=== PATIENT | female | born 1955 | race American Indian/Alaskan Native ===

== ENCOUNTER 2017-04-03 18:28 | Inpatient (IN) | payer OTHER ==
[2017-04-03] MEDS ORDERED: DUONEB *Not for PRN Use IH ONE (20:28)
--- NOTE | 2017-04-03 20:30 | Emergency Department Report ---
HPI - General Chief Complaint: Dyspnea/Respdistress Time Seen by Provider: 04/03/17 20:27 - HPI HPI: This is a 61-year-old -[place] female presents to the emergency department by EMS from a [facility] with complaint of shortness of breath, productive cough, increased fatigue. The patient says that she was diagnosed with influenza 5 days ago at the same urgent care. She went back there today because of the symptoms stated above. She says that she had a chest x-ray and some other blood work done there and was diagnosed with pneumonia. She was then sent here for further evaluation and treatment. The patient has a past medical history of hypertension. She is a tobacco smoker but says she has not had any cigarette in about 2 weeks. She denies any history of COPD and is not oxygen dependent. However the patient presents with some hypoxia with a pulse ox of 90 while on 2 L nasal cannula. She denies any history of AK, CVA, PE/DVT. No recent travel or sick contacts at home. She says that she has a primary care physician but has not seen them in quite some time. ED Review of Systems ROS: Stated complaint: MAT Other details as noted in HPI Comment: All other systems reviewed and negative Constitutional: other (fatigue). denies: chills, fever Eyes: denies: eye pain, eye discharge, vision change ENT: denies: ear pain, dental pain Respiratory: cough, shortness of breath, SOB with exertion Cardiovascular: denies: chest pain, edema Gastrointestinal: denies: abdominal pain, nausea, diarrhea Genitourinary: denies: urgency, dysuria, discharge Musculoskeletal: denies: back pain, joint swelling, arthralgia Skin: denies: rash, lesions Neurological: denies: headache, weakness, paresthesias Physical Exam - Physical Exam Vital Signs: Vital Signs 04/03/17 19:57 Temperature 99.2 F Pulse Rate 90 Respiratory 20 Rate Blood Pressure 139/73 O2 Sat by Pulse 87 Oximetry Physical Exam: GENERAL: The patient is well-developed well-nourished. HENT: Normocephalic. Atraumatic. Patient has moist mucous membranes. EYES: Extraocular motions are intact. Pupils equal reactive to light bilaterally. NECK: Supple. Trachea is midline. CHEST/LUNGS: Clear to auscultation. Mild tachypnea but no accessory muscle use. Occasional productive cough heard during examination. There is no respiratory distress noted. HEART/CARDIOVASCULAR: Regular. There is no tachycardia. There is no murmur. ABDOMEN: Abdomen is soft, nontender. Patient has normal bowel sounds. There is no abdominal distention. SKIN: Skin is warm and dry. NEURO: The patient is awake, alert, and oriented. The patient is cooperative. The patient has no focal neurologic deficits. The patient has normal speech. MUSCULOSKELETAL: There is no tenderness or deformity. There is no limitation range of motion. There is no evidence of acute injury. ED Course Vital Signs 04/03/17 19:57 Temperature 99.2 F Pulse Rate 90 Respiratory 20 Rate Blood Pressure 139/73 O2 Sat by Pulse 87 Oximetry - ABG Interpretation Ph: 7.558 PCO2: 28 PO2: 76 Bicarbonate: 25 Interpretation: respiratory alkalosis, other (hypoxia) ED Medical Decision Making - Lab Data Result diagrams: 04/03/17 20:38 04/03/17 20:45 - EKG Data -: EKG Interpreted by Me EKG shows normal: sinus rhythm, axis, intervals (slightly prolonged QTC), QRS complexes, ST-T waves Rate: normal - EKG Data When compared to previous EKG there are: previous EKG unavailable Interpretation: normal EKG (with slightly prolonged QTC) - Radiology Data Radiology results: report reviewed, image reviewed interpreted by me: X-ray of the chest shows concern for left lower lobe infiltrate and/or pneumonia. No obvious pleural effusion. No pneumothorax. PROCEDURE: CT ANGIO CHEST TECHNIQUE: Computerized tomographic angiography of the chest was performed after the IV injection of iodinated nonionic contrast including image processing. The image data was postprocessed using 2-dimensional multiplanar reformatted (MPR) and 3-dimensional (MIP and/or volume rendered) techniques. HISTORY: SOB, elevated dimer COMPARISON: Chest radiograph of the same date FINDINGS: Heart and pericardium: Normal. Thoracic aorta: Normal. Pulmonary vasculature: Normal. Lymph nodes: No enlarged thoracic lymph nodes. Lungs: Infiltrate identified in the left lower lung. Slight reactive lung tissue with atelectasis right middle and lower lung. No effusion or pneumothorax. The central airway is patent.. Pleural space: No effusion, thickening, or pneumothorax. Musculoskeletal structures: No significant abnormality. Upper abdominal structures: No significant abnormality. IMPRESSION: Minimal infiltrate in the left lower lung with slight reactive lung tissue and atelectasis right middle and lower lung. No effusion or pneumothorax. There is no evidence of pulmonary arterial emboli. Transcribed By: [facility] Dictated By: HUMBERTO REYES MD Electronically Authenticated By: HUMBERTO REYES MD Signed Date/Time: 04/03/172027 - Medical Decision Making Patient presents with some shortness of breath, increased fatigue. She has recent positive influenza. Chest x-ray shows concern for left lower lung infiltrate and/or pneumonia. She has a leukocytosis with left shift. She had some hypoxia when she was first seen in the ER. D-dimer elevated so CT angiography was done that does not show any PE or dissection but may also show left lower lobe pneumonia. Culture sent and patient started on Levaquin. I spoke to [facility] and was given permission to keep the patient here for treatment by Dr. Knowles. She has been accepted for admission by the hospitalist, Dr. Rainey. - Differential Diagnosis pneumonia, influenza, PE, URI Critical Care Time: No Critical care attestation.: If time is entered above; I have spent that time in minutes in the direct care of this critically ill patient, excluding procedure time. ED Disposition Clinical Impression: Hypoxia, Hypokalemia Pneumonia Qualifiers: Pneumonia type: due to unspecified organism Laterality: left Lung location: lower lobe of lung Qualified Code(s): J18.1 - Lobar pneumonia, unspecified organism Sepsis Qualifiers: Sepsis type: sepsis due to unspecified organism Qualified Code(s): A41.9 - Sepsis, unspecified organism Disposition: OP ADMIT IP TO THIS HOSP Is pt being admited?: Yes Condition: Fair Instructions: Bacterial Pneumonia (ED) Referrals: DOUGLAS DSOUZA MD [Primary Care Provider] - 3-5 Days Time of Disposition: 03:52
[2017-04-03 21:03] LABS: Hematocrit 38.2 % (30.3-42.9); Mean Corpuscular HGB Conc 34 % (30-34); Mean Corpuscular Hemoglobin 28 pg (28-32); Mean Corpuscular Volume 84 fl (79-97); Platelet Count 332 K/mm3 (140-440); Red Blood Count 4.58 M/mm3 (3.65-5.03); Red Cell Distribution Width 13.5 % (13.2-15.2)
[2017-04-03 21:14] LABS: INR 1.11 (0.87-1.13); Partial Thromboplastin Time 29.8 Sec. (24.2-36.6)
[2017-04-03 21:19] LABS: Alanine Aminotransferase 38 units/L (7-56); Albumin 3.3 g/dL (3.9-5); BUN/Creatinine Ratio 27; Blood Urea Nitrogen 16 mg/dL (7-17); Calcium 8.9 mg/dL (8.4-10.2); Hemolysis Index 4
[2017-04-03] MEDS ORDERED: LEVAQUIN 750MG/150ML 750 MG/150 ML BAG IV ONE (21:31)
[2017-04-03] MEDS ORDERED: K-DUR PO ONE (21:31)
[2017-04-03 21:42] LABS: Basophils % (Manual) 0 % (0.0-1.8); Eosinophils % (Manual) 0 % (0.0-4.3); Total Cells Counted 100
[2017-04-03 21:43] LABS: Anisocytosis RARE
[2017-04-03 22:33] LABS: Bilirubin,Urine NEG (Negative); Blood,Urine SM (Negative); Color,Urine Yellow (Yellow); Mucus,Urine FEW /HPF; Nitrite,Urine NEG (Negative); Protein,Urine <15 mg/dL mg/dL (Negative); Urobilinogen,Urine < 2.0 mg/dL (<2.0)
--- NOTE | 2017-04-03 22:52 | XRay Report ---
FINAL REPORT PROCEDURE: XR CHEST 1V AP TECHNIQUE: Chest radiograph anteroposterior view. CPT 95541 HISTORY: Dyspnea COMPARISON: No prior studies are available for comparison. FINDINGS: Heart: Normal. Mediastinum/Vessels: Mild pulmonary venous congestion is noted.. Lungs/Pleural space: There is diffuse prominence of interstitial markings. There appears to be an inhomogeneous density in the left retrocardiac region. Pleural spaces are clear... Bony thorax: No acute osseous abnormality. Life support devices: None. IMPRESSION: Mild pulmonary venous congestion. An inhomogeneous density in the left retrocardiac region may represent atelectatic versus infiltrative changes. A two view chest study is recommended whenever the patient's condition permits..
--- NOTE | 2017-04-04 00:32 | Cat Scan Report ---
FINAL REPORT PROCEDURE: CT ANGIO CHEST TECHNIQUE: Computerized tomographic angiography of the chest was performed after the IV injection of iodinated nonionic contrast including image processing. The image data was postprocessed using 2-dimensional multiplanar reformatted (MPR) and 3-dimensional (MIP and/or volume rendered) techniques. HISTORY: SOB, elevated dimer COMPARISON: Chest radiograph of the same date FINDINGS: Heart and pericardium: Normal. Thoracic aorta: Normal. Pulmonary vasculature: Normal. Lymph nodes: No enlarged thoracic lymph nodes. Lungs: Infiltrate identified in the left lower lung. Slight reactive lung tissue with atelectasis right middle and lower lung. No effusion or pneumothorax. The central airway is patent.. Pleural space: No effusion, thickening, or pneumothorax. Musculoskeletal structures: No significant abnormality. Upper abdominal structures: No significant abnormality. IMPRESSION: Minimal infiltrate in the left lower lung with slight reactive lung tissue and atelectasis right middle and lower lung. No effusion or pneumothorax. There is no evidence of pulmonary arterial emboli.
--- NOTE | 2017-04-04 03:50 | History and Physical Report ---
History of Present Illness Date of examination: 04/04/17 History of present illness: 62-year-old man with history of stomach cancer, ovarian cancer, emergency room with complaints of cough, nonproductive. Her symptoms started on March 26, she was seen at [facility] she was diagnosed with the flu and given Tamiflu and cough medications. Her symptoms did not improve, she had generalized weakness, decreased energy and was unable to do her ADLs. She returned to the doctor today, chest x-ray was done which shows pneumonia, she was also hypoxic and she was transferred from [facility] facility here for admission Review Of Systems: Constitutional: no weight loss Ears, eyes, nose, mouth and throat: no nasal congestion, no nasal discharge, no sinus pressure, blurry vision, diplopia Neck: No neck pain or rigidity. Cardiovascular: No chest pain, palpitations Respiratory: + shortness of breath, cough Gastrointestinal: No abdominal pain, hematochezia Genitourinary : no dysuria, frequency , hematuria Musculoskeletal: no muscle ache Integumentary: no rash, no pruritis Neurological: no parathesias, focal weakness Endocrine: no cold or heat intolerance, no polyuria or polydipsia Hematologic/Lymphatic: no easy bruising, no easy bleeding, no gland swelling Allergic/Immunologic: no urticaria, no angioedema. PAST MEDICAL HISTORY:stomach cancer, ovarian cancer PAST SURGICAL HISTORY: Partial gastrectomy, carpal tunnel release FAMILY HISTORY: Hypertension SOCIAL HISTORY: Patient has not smoked since she got sick, social alcohol, no drugs Medications and Allergies Allergies Allergy/AdvReac Type Severity Reaction Status Date / Time No Known Allergies Allergy Verified 04/04/17 03:01 Active Meds: Active Medications Enoxaparin Sodium (Lovenox) 30 mg SUB-Q QDAY FELICIA Exam - Physical Exam Narrative exam: Gen. appearance: Patient lying in bed in no acute distress HEENT: Normocephalic/atraumatic, pupils equal round reactive to light, extra occular movement intact, no scleral icterus, no JVD or thyromegaly or nodule, neck is supple, mucous membrane moist, no erythema or exudate Heart: S1-S2, regular rate and rhythm Lungs: Crackles breathing comfortable Abdomen: Positive bowel sounds, nontender, nondistended, no organomegaly Extremities: No edema, cyanosis, clubbing Neuro:: Oriented 3 , cranial nerves II-12 intact, speech, motor intact Skin: No rash, nodules, warm dry - Constitutional Vitals: Temp Pulse Resp BP Pulse Ox 98.4 F 93 H 24 131/69 95 04/04/17 00:56 04/04/17 03:38 04/04/17 03:38 04/04/17 02:30 04/04/17 03:38 Results - Labs CBC & Chem 7: 04/03/17 20:38 04/03/17 20:45 Labs: Abnormal lab results 04/03/17 04/03/17 04/03/17 Range/Units 20:38 20:44 20:45 WBC 15.1 H (4.5-11.0) K/mm3 Seg Neuts % (Manual) 90.0 H (40.0-70.0) % Lymphocytes % (Manual) 7.0 L (13.4-35.0) % Seg Neutrophils # Man 13.6 H (1.8-7.7) K/mm3 Lymphocytes # (Manual) 1.1 L (1.2-5.4) K/mm3 D-Dimer 758.89 H (0-234) ng/mlDDU POC ABG pH (7.35-7.45) POC ABG pCO2 (35-45) POC ABG pO2 (80-105) Potassium 3.0 L (3.6-5.0) mmol/L Chloride 92.3 L (98-107) mmol/L Creatinine 0.6 L (0.7-1.2) mg/dL Glucose 129 H (65-100) mg/dL AST 44 H (5-40) units/L Albumin 3.3 L (3.9-5) g/dL 04/03/17 Range/Units 21:08 WBC (4.5-11.0) K/mm3 Seg Neuts % (Manual) (40.0-70.0) % Lymphocytes % (Manual) (13.4-35.0) % Seg Neutrophils # Man (1.8-7.7) K/mm3 Lymphocytes # (Manual) (1.2-5.4) K/mm3 D-Dimer (0-234) ng/mlDDU POC ABG pH 7.558 H (7.35-7.45) POC ABG pCO2 28.6 L (35-45) POC ABG pO2 76 L (80-105) Potassium (3.6-5.0) mmol/L Chloride (98-107) mmol/L Creatinine (0.7-1.2) mg/dL Glucose (65-100) mg/dL AST (5-40) units/L Albumin (3.9-5) g/dL - Imaging and Cardiology EKG: image reviewed Chest x-ray: image reviewed Assessment and Plan Assessment Sepsis Pneumonia History of ovarian stomach cancer Plan Admit to medicine Start IV fluids, IV antibiotic, follow cultures Continued appropriate outpatient medications DVT Prophylaxis
[2017-04-04] MEDS ORDERED: TYLENOL PO PRN (03:51)
[2017-04-04] MEDS ORDERED: ZOFRAN IV PRN (03:51)
[2017-04-04] MEDS ORDERED: MILK OF MAGNESIA PO PRN (03:51)
[2017-04-04] MEDS ORDERED: DULCOLAX PR PRN (03:51)
[2017-04-04] MEDS: NACL 0.9% 1000 ML 1,000 ML IV SCH ×2 (05:21→16:25)
[2017-04-04] MEDS ORDERED: AFRIN NS PRN (05:32)
[2017-04-04] MEDS: ROBITUSSIN AC PO PRN ×2 (06:03→19:59)
[2017-04-04] MEDS: DUONEB *Not for PRN Use IH SCH ×3 (07:29→20:46)
[2017-04-04] MEDS: LOVENOX SUB-Q SCH (09:30)
[2017-04-04] MEDS ORDERED: LOVENOX SUB-Q SCH (10:00)
--- NOTE | 2017-04-04 13:18 | Progress Note ---
Assessment and Plan Assessment and plan: Patient is 62-year-old woman with history of hypertension, ovarian and stomach cancer in remission who present from [facility] urgent care with sob and cough. Patient had the Flu and was treated with Tamiflu, 1-2 weeks prior to presentation. Chest x-ray reported as mild pulmonary vascular congestion CTA of the chest reported as minimal infiltrate in the left lower lung with slight reactive lung tissue and atelectasis right middle and lower lobe. No effusion or pneumothorax, there is no evidence of pulmonary artery emboli. -Acute hypoxic respiratory failure, patient was on 85% on room air at rest: Treatment will oxygen -Sepsis bilateral aspiration pneumonia: Careful with IV fluids due to venous pulmonary congestion, follow cultures -Left lower lobe pneumonia: Treatment with antibiotics -Hypokalemia: Replace and recheck in a.m. -DVT prophylaxis: Subcutaneous Lovenox History Interval history: Patient was seen and examined. Follow-up on current diagnosis. Overnight uneventful. Patient denies any chest pain, shortness breath, nausea/vomiting or severe headaches. Imaging, nursing note, chart, labs and old chart reviewed. Discussed with patient. Hospitalist Physical - Physical exam Narrative exam: GEN: WDWN, NAD, AWAKE, ALERT, ORIENTATED 3 HEENT: NCAT, EOMI, PERRL, OP Clear NECK: supple, no adenopathy, no thyromegaly, no JVD CVS/HEART: RRR, NORMAL S1S2, NO JVD, pulses present bilaterally CHEST/LUNGS: Crackles bilaterally, Symmetrical chest expansion, good air entry bilaterally GI/Abdomen: soft, NTND, good bowel sounds, no guarding or rebound /Bladder: no suprapubic tenderness, no CVA or paraspinal tenderness EXT/Skin: no c/c/e, no obvious rash MSK: FROM x 4 Neuro: CN 2-12 grossly intact, no new focal deficits Psych: calm - Constitutional Vitals: Temp Pulse Resp BP Pulse Ox 98.5 F 88 18 138/59 85 04/04/17 08:21 04/04/17 08:21 04/04/17 08:21 04/04/17 08:21 04/04/17 08:21 Results - Labs CBC & Chem 7: 04/03/17 20:38 04/03/17 20:45 Labs: Laboratory Last Values WBC 15.1 K/mm3 (4.5-11.0) H 04/03/17 20:38 RBC 4.58 M/mm3 (3.65-5.03) 04/03/17 20:38 Hgb 13.0 gm/dl (10.1-14.3) 04/03/17 20:38 Hct 38.2 % (30.3-42.9) 04/03/17 20:38 MCV 84 fl (79-97) 04/03/17 20:38 MCH 28 pg (28-32) 04/03/17 20:38 MCHC 34 % (30-34) 04/03/17 20:38 RDW 13.5 % (13.2-15.2) 04/03/17 20:38 Plt Count 332 K/mm3 (140-440) 04/03/17 20:38 Add Manual Diff Complete 04/03/17 20:38 Total Counted 100 04/03/17 20:38 Seg Neutrophils % [place] Raiser 04/03/17 20:38 Seg Neuts % (Manual) 90.0 % (40.0-70.0) H 04/03/17 20:38 Band Neutrophils % 0 % 04/03/17 20:38 Lymphocytes % (Manual) 7.0 % (13.4-35.0) L 04/03/17 20:38 Reactive Lymphs % (Man) 0 % 04/03/17 20:38 Monocytes % (Manual) 3.0 % (0.0-7.3) 04/03/17 20:38 Eosinophils % (Manual) 0 % (0.0-4.3) 04/03/17 20:38 Basophils % (Manual) 0 % (0.0-1.8) 04/03/17 20:38 Metamyelocytes % 0 % 04/03/17 20:38 Myelocytes % 0 % 04/03/17 20:38 Promyelocytes % 0 % 04/03/17 20:38 Blast Cells % 0 % 04/03/17 20:38 Nucleated RBC % Not Reportable 04/03/17 20:38 Seg Neutrophils # Man 13.6 K/mm3 (1.8-7.7) H 04/03/17 20:38 Band Neutrophils # 0.0 K/mm3 04/03/17 20:38 Lymphocytes # (Manual) 1.1 K/mm3 (1.2-5.4) L 04/03/17 20:38 Abs React Lymphs (Man) 0.0 K/mm3 04/03/17 20:38 Monocytes # (Manual) 0.5 K/mm3 (0.0-0.8) 04/03/17 20:38 Eosinophils # (Manual) 0.0 K/mm3 (0.0-0.4) 04/03/17 20:38 Basophils # (Manual) 0.0 K/mm3 (0.0-0.1) 04/03/17 20:38 Metamyelocytes # 0.0 K/mm3 04/03/17 20:38 Myelocytes # 0.0 K/mm3 04/03/17 20:38 Promyelocytes # 0.0 K/mm3 04/03/17 20:38 Blast Cells # 0.0 K/mm3 04/03/17 20:38 WBC Morphology Not Reportable 04/03/17 20:38 Hypersegmented Neuts Not Reportable 04/03/17 20:38 Hyposegmented Neuts Not Reportable 04/03/17 20:38 Hypogranular Neuts Not Reportable 04/03/17 20:38 Smudge Cells Not Reportable 04/03/17 20:38 Toxic Granulation Not Reportable 04/03/17 20:38 Toxic Vacuolation Not Reportable 04/03/17 20:38 Dohle Bodies Not Reportable 04/03/17 20:38 Pelger-Huet Anomaly Not Reportable 04/03/17 20:38 Mateo Rods Not Reportable 04/03/17 20:38 Platelet Estimate Appears normal 04/03/17 20:38 Clumped Platelets Not Reportable 04/03/17 20:38 Plt Clumps, EDTA Not Reportable 04/03/17 20:38 Large Platelets Not Reportable 04/03/17 20:38 Giant Platelets Not Reportable 04/03/17 20:38 Platelet Satelliting Not Reportable 04/03/17 20:38 Plt Morphology Comment Not Reportable 04/03/17 20:38 RBC Morphology Not Reportable 04/03/17 20:38 Dimorphic RBCs Not Reportable 04/03/17 20:38 Polychromasia Not Reportable 04/03/17 20:38 Hypochromasia Not Reportable 04/03/17 20:38 Poikilocytosis Not Reportable 04/03/17 20:38 Anisocytosis Rare 04/03/17 20:38 Microcytosis Not Reportable 04/03/17 20:38 Macrocytosis Not Reportable 04/03/17 20:38 Spherocytes Not Reportable 04/03/17 20:38 Pappenheimer Bodies Not Reportable 04/03/17 20:38 Sickle Cells Not Reportable 04/03/17 20:38 Target Cells Not Reportable 04/03/17 20:38 Tear Drop Cells Not Reportable 04/03/17 20:38 Ovalocytes Not Reportable 04/03/17 20:38 Helmet Cells Not Reportable 04/03/17 20:38 [place] Bodies Not Reportable 04/03/17 20:38 [place] Rings Not Reportable 04/03/17 20:38 [place] Cells Not Reportable 04/03/17 20:38 Bite Cells Not Reportable 04/03/17 20:38 Crenated Cell Not Reportable 04/03/17 20:38 Elliptocytes Not Reportable 04/03/17 20:38 Acanthocytes (Spur) Not Reportable 04/03/17 20:38 Rouleaux Not Reportable 04/03/17 20:38 Hemoglobin C Crystals Not Reportable 04/03/17 20:38 Schistocytes Not Reportable 04/03/17 20:38 Malaria parasites Not Reportable 04/03/17 20:38 [place] Bodies Not Reportable 04/03/17 20:38 Hem Pathologist Commnt No 04/03/17 20:38 PT 14.9 Sec. (12.2-14.9) 04/03/17 20:44 INR 1.11 (0.87-1.13) 04/03/17 20:44 APTT 29.8 Sec. (24.2-36.6) 04/03/17 20:44 D-Dimer 758.89 ng/mlDDU (0-234) H 04/03/17 20:44 POC ABG pH 7.558 (7.35-7.45) H 04/03/17 21:08 POC ABG pCO2 28.6 (35-45) L 04/03/17 21:08 POC ABG pO2 76 (80-105) L 04/03/17 21:08 POC ABG HCO3 25.5 04/03/17 21:08 POC ABG Total CO2 26 04/03/17 21:08 POC ABG O2 Sat 97 04/03/17 21:08 POC ABG Base Excess 3 04/03/17 21:08 FiO2 28 % 04/03/17 21:08 Sodium 138 mmol/L (137-145) 04/03/17 20:45 Potassium 3.0 mmol/L (3.6-5.0) L 04/03/17 20:45 Chloride 92.3 mmol/L (98-107) L 04/03/17 20:45 Carbon Dioxide 24 mmol/L (22-30) 04/03/17 20:45 Anion Gap 25 mmol/L 04/03/17 20:45 BUN 16 mg/dL (7-17) 04/03/17 20:45 Creatinine 0.6 mg/dL (0.7-1.2) L 04/03/17 20:45 Estimated GFR > 60 ml/min 04/03/17 20:45 BUN/Creatinine Ratio 27 % 04/03/17 20:45 Glucose 129 mg/dL (65-100) H 04/03/17 20:45 Calcium 8.9 mg/dL (8.4-10.2) 04/03/17 20:45 Total Bilirubin 0.50 mg/dL (0.1-1.2) 04/03/17 20:45 AST 44 units/L (5-40) H 04/03/17 20:45 ALT 38 units/L (7-56) 04/03/17 20:45 Alkaline Phosphatase 76 units/L (35-129) 04/03/17 20:45 Troponin T < 0.010 ng/mL (0.00-0.029) 04/04/17 02:16 NT-Pro-B Natriuret Pep 62.68 pg/mL (0-900) 04/03/17 20:45 Total Protein 7.6 g/dL (6.3-8.2) 04/03/17 20:45 Albumin 3.3 g/dL (3.9-5) L 04/03/17 20:45 Albumin/Globulin Ratio 0.8 % 04/03/17 20:45 Urine Color Yellow (Yellow) 04/03/17 Unknown Urine Turbidity Clear (Clear) 04/03/17 Unknown Urine pH 5.0 (5.0-7.0) 04/03/17 Unknown Ur Specific [place] 1.018 (1.003-1.030) 04/03/17 Unknown Urine Protein <15 mg/dl mg/dL (Negative) 04/03/17 Unknown Urine Glucose (UA) Neg mg/dL (Negative) 04/03/17 Unknown Urine Ketones Neg mg/dL (Negative) 04/03/17 Unknown Urine Blood Sm (Negative) 04/03/17 Unknown Urine Nitrite Neg (Negative) 04/03/17 Unknown Urine Bilirubin Neg (Negative) 04/03/17 Unknown Urine Urobilinogen < 2.0 mg/dL (<2.0) 04/03/17 Unknown Ur Leukocyte Esterase Tr (Negative) 04/03/17 Unknown Urine WBC (Auto) 3.0 /HPF (0.0-6.0) 04/03/17 Unknown Urine RBC (Auto) 3.0 /HPF (0.0-6.0) 04/03/17 Unknown U Epithel Cells (Auto) 2.0 /HPF (0-13.0) 04/03/17 Unknown Urine Mucus Few /HPF 04/03/17 Unknown
[2017-04-04] MEDS: LEVAQUIN 750MG/150ML 750 MG/150 ML BAG IV SCH (23:42)
[2017-04-05] MEDS: DUONEB *Not for PRN Use IH SCH ×4 (02:19→21:33)
[2017-04-05] MEDS: ROBITUSSIN AC PO PRN ×3 (03:42→16:57)
[2017-04-05] MEDS: NACL 0.9% 1000 ML 1,000 ML IV SCH (03:45)
[2017-04-05 07:20] LABS: Hematocrit 32.6 % (30.3-42.9); Hemoglobin 10.9 gm/dl (10.1-14.3); Mean Corpuscular HGB Conc 33 % (30-34); Mean Corpuscular Hemoglobin 28 pg (28-32); Mean Corpuscular Volume 84 fl (79-97); Platelet Count 360 K/mm3 (140-440); Red Blood Count 3.88 M/mm3 (3.65-5.03); Red Cell Distribution Width 13.8 % (13.2-15.2)
[2017-04-05 07:34] LABS: BUN/Creatinine Ratio 28; Blood Urea Nitrogen 17 mg/dL (7-17); Calcium 8.6 mg/dL (8.4-10.2); Hemolysis Index 2
[2017-04-05] MEDS ORDERED: K-DUR PO ONE (07:50)
[2017-04-05 09:09] LABS: Anisocytosis Few; Band Neutrophils # (Manual) 0.9 K/mm3; Basophils % (Manual) 0 % (0.0-1.8); Eosinophils % (Manual) 0 % (0.0-4.3); Total Cells Counted 100
[2017-04-05 09:10] LABS: Large Platelets Few; Spherocytes Few
[2017-04-05] MEDS: LOVENOX SUB-Q SCH (10:10)
--- NOTE | 2017-04-05 12:40 | Progress Note ---
Assessment and Plan Assessment and plan: Patient is 62-year-old woman with history of hypertension, ovarian and stomach cancer in remission who present from [facility] with sob and cough. Patient had the Flu and was treated with Tamiflu, 1-2 weeks prior to presentation. Chest x-ray reported as mild pulmonary vascular congestion CTA of the chest reported as minimal infiltrate in the left lower lung with slight reactive lung tissue and atelectasis right middle and lower lobe. No effusion or pneumothorax, there is no evidence of pulmonary artery emboli. -Acute hypoxic respiratory failure, patient was on 85% on room air at rest: Treatment will oxygen -Sepsis bilateral aspiration pneumonia: Careful with IV fluids due to venous pulmonary congestion, follow cultures -Left lower lobe pneumonia: Treatment with antibiotics -Hypokalemia: Replace and recheck in a.m. -DVT prophylaxis: Subcutaneous Lovenox 04/04/17: 85% ra 04/05/17: 87% ra, will stop fluids, give one dose of 1v lasix lasix and recheck pulse ox tomorrow, if off o2 then d/c home or arrange for home o2 on friday History Interval history: Patient was seen and examined. Follow-up on current diagnosis. Overnight uneventful. Patient denies any chest pain, shortness breath, nausea/vomiting or severe headaches. Imaging, nursing note, chart, labs and old chart reviewed. Discussed with patient. Hospitalist Physical - Physical exam Narrative exam: GEN: WDWN, NAD, AWAKE, ALERT, ORIENTATED 3 HEENT: NCAT, EOMI, PERRL, OP Clear NECK: supple, no adenopathy, no thyromegaly, no JVD CVS/HEART: RRR, NORMAL S1S2, NO JVD, pulses present bilaterally CHEST/LUNGS: Crackles bilaterally, Symmetrical chest expansion, good air entry bilaterally GI/Abdomen: soft, NTND, good bowel sounds, no guarding or rebound /Bladder: no suprapubic tenderness, no CVA or paraspinal tenderness EXT/Skin: no c/c/e, no obvious rash MSK: FROM x 4 Neuro: CN 2-12 grossly intact, no new focal deficits Psych: calm - Constitutional Vitals: Temp Pulse Resp BP Pulse Ox 98.4 F 83 18 124/68 97 04/05/17 08:56 04/05/17 08:56 04/05/17 08:56 04/05/17 08:56 04/05/17 10:41 Results - Labs CBC & Chem 7: 04/05/17 06:31 04/05/17 06:31 Labs: Laboratory Last Values WBC 11.1 K/mm3 (4.5-11.0) H 04/05/17 06:31 RBC 3.88 M/mm3 (3.65-5.03) 04/05/17 06:31 Hgb 10.9 gm/dl (10.1-14.3) 04/05/17 06:31 Hct 32.6 % (30.3-42.9) 04/05/17 06:31 MCV 84 fl (79-97) 04/05/17 06:31 MCH 28 pg (28-32) 04/05/17 06:31 MCHC 33 % (30-34) 04/05/17 06:31 RDW 13.8 % (13.2-15.2) 04/05/17 06:31 Plt Count 360 K/mm3 (140-440) 04/05/17 06:31 Add Manual Diff Complete 04/05/17 06:31 Total Counted 100 04/05/17 06:31 Seg Neutrophils % Partner Marketing Intern 04/03/17 20:38 Seg Neuts % (Manual) 56.0 % (40.0-70.0) 04/05/17 06:31 Band Neutrophils % 8.0 % 04/05/17 06:31 Lymphocytes % (Manual) 19.0 % (13.4-35.0) 04/05/17 06:31 Reactive Lymphs % (Man) 0 % 04/05/17 06:31 Monocytes % (Manual) 15.0 % (0.0-7.3) H 04/05/17 06:31 Eosinophils % (Manual) 0 % (0.0-4.3) 04/05/17 06:31 Basophils % (Manual) 0 % (0.0-1.8) 04/05/17 06:31 Metamyelocytes % 2.0 % 04/05/17 06:31 Myelocytes % 0 % 04/05/17 06:31 Promyelocytes % 0 % 04/05/17 06:31 Blast Cells % 0 % 04/05/17 06:31 Nucleated RBC % Not Reportable 04/05/17 06:31 Seg Neutrophils # Man 6.2 K/mm3 (1.8-7.7) 04/05/17 06:31 Band Neutrophils # 0.9 K/mm3 04/05/17 06:31 Lymphocytes # (Manual) 2.1 K/mm3 (1.2-5.4) 04/05/17 06:31 Abs React Lymphs (Man) 0.0 K/mm3 04/05/17 06:31 Monocytes # (Manual) 1.7 K/mm3 (0.0-0.8) H 04/05/17 06:31 Eosinophils # (Manual) 0.0 K/mm3 (0.0-0.4) 04/05/17 06:31 Basophils # (Manual) 0.0 K/mm3 (0.0-0.1) 04/05/17 06:31 Metamyelocytes # 0.2 K/mm3 04/05/17 06:31 Myelocytes # 0.0 K/mm3 04/05/17 06:31 Promyelocytes # 0.0 K/mm3 04/05/17 06:31 Blast Cells # 0.0 K/mm3 04/05/17 06:31 WBC Morphology Not Reportable 04/05/17 06:31 Hypersegmented Neuts Not Reportable 04/05/17 06:31 Hyposegmented Neuts Not Reportable 04/05/17 06:31 Hypogranular Neuts Not Reportable 04/05/17 06:31 Smudge Cells Not Reportable 04/05/17 06:31 Toxic Granulation Not Reportable 04/05/17 06:31 Toxic Vacuolation Not Reportable 04/05/17 06:31 Dohle Bodies Not Reportable 04/05/17 06:31 Pelger-Huet Anomaly Not Reportable 04/05/17 06:31 Mateo Rods Not Reportable 04/05/17 06:31 Platelet Estimate Appears normal 04/05/17 06:31 Clumped Platelets Not Reportable 04/05/17 06:31 Plt Clumps, EDTA Not Reportable 04/05/17 06:31 Large Platelets Few 04/05/17 06:31 Giant Platelets Not Reportable 04/05/17 06:31 Platelet Satelliting Not Reportable 04/05/17 06:31 Plt Morphology Comment Not Reportable 04/05/17 06:31 RBC Morphology Not Reportable 04/05/17 06:31 Dimorphic RBCs Not Reportable 04/05/17 06:31 Polychromasia Not Reportable 04/05/17 06:31 Hypochromasia Not Reportable 04/05/17 06:31 Poikilocytosis Not Reportable 04/05/17 06:31 Anisocytosis Few 04/05/17 06:31 Microcytosis Not Reportable 04/05/17 06:31 Macrocytosis Not Reportable 04/05/17 06:31 Spherocytes Few 04/05/17 06:31 Pappenheimer Bodies Not Reportable 04/05/17 06:31 Sickle Cells Not Reportable 04/05/17 06:31 Target Cells Not Reportable 04/05/17 06:31 Tear Drop Cells Not Reportable 04/05/17 06:31 Ovalocytes Not Reportable 04/05/17 06:31 Helmet Cells Not Reportable 04/05/17 06:31 [place] Bodies Not Reportable 04/05/17 06:31 [place] Rings Not Reportable 04/05/17 06:31 Diane Cells Not Reportable 04/05/17 06:31 Bite Cells Not Reportable 04/05/17 06:31 Crenated Cell Not Reportable 04/05/17 06:31 Elliptocytes Not Reportable 04/05/17 06:31 Acanthocytes (Spur) Not Reportable 04/05/17 06:31 Rouleaux Not Reportable 04/05/17 06:31 Hemoglobin C Crystals Not Reportable 04/05/17 06:31 Schistocytes Not Reportable 04/05/17 06:31 Malaria parasites Not Reportable 04/05/17 06:31 Benoit Bodies Not Reportable 04/05/17 06:31 Hem Pathologist Commnt No 04/05/17 06:31 PT 14.9 Sec. (12.2-14.9) 04/03/17 20:44 INR 1.11 (0.87-1.13) 04/03/17 20:44 APTT 29.8 Sec. (24.2-36.6) 04/03/17 20:44 D-Dimer 758.89 ng/mlDDU (0-234) H 04/03/17 20:44 POC ABG pH 7.558 (7.35-7.45) H 04/03/17 21:08 POC ABG pCO2 28.6 (35-45) L 04/03/17 21:08 POC ABG pO2 76 (80-105) L 04/03/17 21:08 POC ABG HCO3 25.5 04/03/17 21:08 POC ABG Total CO2 26 04/03/17 21:08 POC ABG O2 Sat 97 04/03/17 21:08 POC ABG Base Excess 3 04/03/17 21:08 FiO2 28 % 04/03/17 21:08 Sodium 143 mmol/L (137-145) 04/05/17 06:31 Potassium 3.3 mmol/L (3.6-5.0) L 04/05/17 06:31 Chloride 103.3 mmol/L (98-107) 04/05/17 06:31 Carbon Dioxide 26 mmol/L (22-30) 04/05/17 06:31 Anion Gap 17 mmol/L 04/05/17 06:31 BUN 17 mg/dL (7-17) 04/05/17 06:31 Creatinine 0.6 mg/dL (0.7-1.2) L 04/05/17 06:31 Estimated GFR > 60 ml/min 04/05/17 06:31 BUN/Creatinine Ratio 28 % 04/05/17 06:31 Glucose 89 mg/dL (65-100) 04/05/17 06:31 Calcium 8.6 mg/dL (8.4-10.2) 04/05/17 06:31 Total Bilirubin 0.50 mg/dL (0.1-1.2) 04/03/17 20:45 AST 44 units/L (5-40) H 04/03/17 20:45 ALT 38 units/L (7-56) 04/03/17 20:45 Alkaline Phosphatase 76 units/L (35-129) 04/03/17 20:45 Troponin T < 0.010 ng/mL (0.00-0.029) 04/04/17 02:16 NT-Pro-B Natriuret Pep 62.68 pg/mL (0-900) 04/03/17 20:45 Total Protein 7.6 g/dL (6.3-8.2) 04/03/17 20:45 Albumin 3.3 g/dL (3.9-5) L 04/03/17 20:45 Albumin/Globulin Ratio 0.8 % 04/03/17 20:45 Urine Color Yellow (Yellow) 04/03/17 Unknown Urine Turbidity Clear (Clear) 04/03/17 Unknown Urine pH 5.0 (5.0-7.0) 04/03/17 Unknown Ur Specific [place] 1.018 (1.003-1.030) 04/03/17 Unknown Urine Protein <15 mg/dl mg/dL (Negative) 04/03/17 Unknown Urine Glucose (UA) Neg mg/dL (Negative) 04/03/17 Unknown Urine Ketones Neg mg/dL (Negative) 04/03/17 Unknown Urine Blood Sm (Negative) 04/03/17 Unknown Urine Nitrite Neg (Negative) 04/03/17 Unknown Urine Bilirubin Neg (Negative) 04/03/17 Unknown Urine Urobilinogen < 2.0 mg/dL (<2.0) 04/03/17 Unknown Ur Leukocyte Esterase Tr (Negative) 04/03/17 Unknown Urine WBC (Auto) 3.0 /HPF (0.0-6.0) 04/03/17 Unknown Urine RBC (Auto) 3.0 /HPF (0.0-6.0) 04/03/17 Unknown U Epithel Cells (Auto) 2.0 /HPF (0-13.0) 04/03/17 Unknown Urine Mucus Few /HPF 04/03/17 Unknown
[2017-04-05] MEDS ORDERED: LASIX IV ONE (14:00)
[2017-04-05] MEDS: LEVAQUIN 750MG/150ML 750 MG/150 ML BAG IV SCH (23:02)
[2017-04-06] MEDS: DUONEB *Not for PRN Use IH SCH ×3 (08:13→20:30)
[2017-04-06 09:13] LABS: Hematocrit 35.8 % (30.3-42.9); Hemoglobin 11.5 gm/dl (10.1-14.3); Mean Corpuscular HGB Conc 32 % (30-34); Mean Corpuscular Hemoglobin 27 pg (28-32); Mean Corpuscular Volume 84 fl (79-97); Platelet Count 453 K/mm3 (140-440); Red Blood Count 4.26 M/mm3 (3.65-5.03); Red Cell Distribution Width 13.8 % (13.2-15.2)
[2017-04-06 09:34] LABS: BUN/Creatinine Ratio 20; Blood Urea Nitrogen 12 mg/dL (7-17); Calcium 9.1 mg/dL (8.4-10.2); Hemolysis Index 5
[2017-04-06] MEDS: LOVENOX SUB-Q SCH (10:46)
--- NOTE | 2017-04-06 11:12 | Progress Note ---
Assessment and Plan Assessment and plan: Patient is 62-year-old woman with history of hypertension, smoker (quit last month) ovarian and stomach cancer in remission who present from [facility] with sob and cough. Patient had the Flu and was treated with Tamiflu, 1-2 weeks prior to presentation. Chest x-ray reported as mild pulmonary vascular congestion CTA of the chest reported as minimal infiltrate in the left lower lung with slight reactive lung tissue and atelectasis right middle and lower lobe. No effusion or pneumothorax, there is no evidence of pulmonary artery emboli. -Acute hypoxic respiratory failure, patient was on 85% on room air at rest: Treatment will oxygen -Sepsis bilateral aspiration pneumonia: Careful with IV fluids due to venous pulmonary congestion, follow cultures -Left lower lobe pneumonia: Treatment with antibiotics -Hypokalemia: Replace and recheck in a.m. -DVT prophylaxis: Subcutaneous Lovenox 04/04/17: 85% ra 04/05/17: 87% ra, will stop fluids, give one dose of 1v lasix lasix and recheck pulse ox tomorrow, if off o2 then d/c home or arrange for home o2 on friday04/06/17: SPO2 with O2 92%, without O2 87%, with out O2 on ambulation 85%, ambulation with 2lts O2 91%, home tomorrow with O2 suspect component of Asthma. She needs testing for COPD History Interval history: Patient was seen and examined. Follow-up on current diagnosis. Overnight uneventful. Patient denies any chest pain, shortness breath, nausea/vomiting or severe headaches. Imaging, nursing note, chart, labs and old chart reviewed. Discussed with patient. Hospitalist Physical - Physical exam Narrative exam: GEN: WDWN, NAD, AWAKE, ALERT, ORIENTATED 3 HEENT: NCAT, EOMI, PERRL, OP Clear NECK: supple, no adenopathy, no thyromegaly, no JVD CVS/HEART: RRR, NORMAL S1S2, NO JVD, pulses present bilaterally CHEST/LUNGS: Crackles bilaterally, Symmetrical chest expansion, good air entry bilaterally GI/Abdomen: soft, NTND, good bowel sounds, no guarding or rebound /Bladder: no suprapubic tenderness, no CVA or paraspinal tenderness EXT/Skin: no c/c/e, no obvious rash MSK: FROM x 4 Neuro: CN 2-12 grossly intact, no new focal deficits Psych: calm - Constitutional Vitals: Temp Pulse Resp BP Pulse Ox 99.1 F 84 19 116/65 94 04/06/17 08:09 04/06/17 08:51 04/06/17 08:51 04/06/17 08:09 04/06/17 08:14 Results - Labs CBC & Chem 7: 04/06/17 07:52 04/06/17 07:52 Labs: Laboratory Last Values WBC 10.7 K/mm3 (4.5-11.0) 04/06/17 07:52 RBC 4.26 M/mm3 (3.65-5.03) 04/06/17 07:52 Hgb 11.5 gm/dl (10.1-14.3) 04/06/17 07:52 Hct 35.8 % (30.3-42.9) 04/06/17 07:52 MCV 84 fl (79-97) 04/06/17 07:52 MCH 27 pg (28-32) L 04/06/17 07:52 MCHC 32 % (30-34) 04/06/17 07:52 RDW 13.8 % (13.2-15.2) 04/06/17 07:52 Plt Count 453 K/mm3 (140-440) H 04/06/17 07:52 Add Manual Diff Complete 04/05/17 06:31 Total Counted 100 04/05/17 06:31 Seg Neutrophils % Child Psychometrist 04/03/17 20:38 Seg Neuts % (Manual) 56.0 % (40.0-70.0) 04/05/17 06:31 Band Neutrophils % 8.0 % 04/05/17 06:31 Lymphocytes % (Manual) 19.0 % (13.4-35.0) 04/05/17 06:31 Reactive Lymphs % (Man) 0 % 04/05/17 06:31 Monocytes % (Manual) 15.0 % (0.0-7.3) H 04/05/17 06:31 Eosinophils % (Manual) 0 % (0.0-4.3) 04/05/17 06:31 Basophils % (Manual) 0 % (0.0-1.8) 04/05/17 06:31 Metamyelocytes % 2.0 % 04/05/17 06:31 Myelocytes % 0 % 04/05/17 06:31 Promyelocytes % 0 % 04/05/17 06:31 Blast Cells % 0 % 04/05/17 06:31 Nucleated RBC % Not Reportable 04/05/17 06:31 Seg Neutrophils # Man 6.2 K/mm3 (1.8-7.7) 04/05/17 06:31 Band Neutrophils # 0.9 K/mm3 04/05/17 06:31 Lymphocytes # (Manual) 2.1 K/mm3 (1.2-5.4) 04/05/17 06:31 Abs React Lymphs (Man) 0.0 K/mm3 04/05/17 06:31 Monocytes # (Manual) 1.7 K/mm3 (0.0-0.8) H 04/05/17 06:31 Eosinophils # (Manual) 0.0 K/mm3 (0.0-0.4) 04/05/17 06:31 Basophils # (Manual) 0.0 K/mm3 (0.0-0.1) 04/05/17 06:31 Metamyelocytes # 0.2 K/mm3 04/05/17 06:31 Myelocytes # 0.0 K/mm3 04/05/17 06:31 Promyelocytes # 0.0 K/mm3 04/05/17 06:31 Blast Cells # 0.0 K/mm3 04/05/17 06:31 WBC Morphology Not Reportable 04/05/17 06:31 Hypersegmented Neuts Not Reportable 04/05/17 06:31 Hyposegmented Neuts Not Reportable 04/05/17 06:31 Hypogranular Neuts Not Reportable 04/05/17 06:31 Smudge Cells Not Reportable 04/05/17 06:31 Toxic Granulation Not Reportable 04/05/17 06:31 Toxic Vacuolation Not Reportable 04/05/17 06:31 Dohle Bodies Not Reportable 04/05/17 06:31 Pelger-Huet Anomaly Not Reportable 04/05/17 06:31 Mateo Rods Not Reportable 04/05/17 06:31 Platelet Estimate Appears normal 04/05/17 06:31 Clumped Platelets Not Reportable 04/05/17 06:31 Plt Clumps, EDTA Not Reportable 04/05/17 06:31 Large Platelets Few 04/05/17 06:31 Giant Platelets Not Reportable 04/05/17 06:31 Platelet Satelliting Not Reportable 04/05/17 06:31 Plt Morphology Comment Not Reportable 04/05/17 06:31 RBC Morphology Not Reportable 04/05/17 06:31 Dimorphic RBCs Not Reportable 04/05/17 06:31 Polychromasia Not Reportable 04/05/17 06:31 Hypochromasia Not Reportable 04/05/17 06:31 Poikilocytosis Not Reportable 04/05/17 06:31 Anisocytosis Few 04/05/17 06:31 Microcytosis Not Reportable 04/05/17 06:31 Macrocytosis Not Reportable 04/05/17 06:31 Spherocytes Few 04/05/17 06:31 Pappenheimer Bodies Not Reportable 04/05/17 06:31 Sickle Cells Not Reportable 04/05/17 06:31 Target Cells Not Reportable 04/05/17 06:31 Tear Drop Cells Not Reportable 04/05/17 06:31 Ovalocytes Not Reportable 04/05/17 06:31 Helmet Cells Not Reportable 04/05/17 06:[address] [place] Bodies Not Reportable 04/05/17 06:31 [place] Rings Not Reportable 04/05/17 06:31 Diane Cells Not Reportable 04/05/17 06:31 Bite Cells Not Reportable 04/05/17 06:31 Crenated Cell Not Reportable 04/05/17 06:31 Elliptocytes Not Reportable 04/05/17 06:31 Acanthocytes (Spur) Not Reportable 04/05/17 06:31 Rouleaux Not Reportable 04/05/17 06:31 Hemoglobin C Crystals Not Reportable 04/05/17 06:31 Schistocytes Not Reportable 04/05/17 06:31 Malaria parasites Not Reportable 04/05/17 06:31 Benoit Bodies Not Reportable 04/05/17 06:31 Hem Pathologist Commnt No 04/05/17 06:31 PT 14.9 Sec. (12.2-14.9) 04/03/17 20:44 INR 1.11 (0.87-1.13) 04/03/17 20:44 APTT 29.8 Sec. (24.2-36.6) 04/03/17 20:44 D-Dimer 758.89 ng/mlDDU (0-234) H 04/03/17 20:44 POC ABG pH 7.558 (7.35-7.45) H 04/03/17 21:08 POC ABG pCO2 28.6 (35-45) L 04/03/17 21:08 POC ABG pO2 76 (80-105) L 04/03/17 21:08 POC ABG HCO3 25.5 04/03/17 21:08 POC ABG Total CO2 26 04/03/17 21:08 POC ABG O2 Sat 97 04/03/17 21:08 POC ABG Base Excess 3 04/03/17 21:08 FiO2 28 % 04/03/17 21:08 Sodium 142 mmol/L (137-145) 04/06/17 07:52 Potassium 3.5 mmol/L (3.6-5.0) L 04/06/17 07:52 Chloride 98.3 mmol/L (98-107) 04/06/17 07:52 Carbon Dioxide 27 mmol/L (22-30) 04/06/17 07:52 Anion Gap 20 mmol/L 04/06/17 07:52 BUN 12 mg/dL (7-17) 04/06/17 07:52 Creatinine 0.6 mg/dL (0.7-1.2) L 04/06/17 07:52 Estimated GFR > 60 ml/min 04/06/17 07:52 BUN/Creatinine Ratio 20 % 04/06/17 07:52 Glucose 88 mg/dL (65-100) 04/06/17 07:52 Calcium 9.1 mg/dL (8.4-10.2) 04/06/17 07:52 Total Bilirubin 0.50 mg/dL (0.1-1.2) 04/03/17 20:45 AST 44 units/L (5-40) H 04/03/17 20:45 ALT 38 units/L (7-56) 04/03/17 20:45 Alkaline Phosphatase 76 units/L (35-129) 04/03/17 20:45 Troponin T < 0.010 ng/mL (0.00-0.029) 04/04/17 02:16 NT-Pro-B Natriuret Pep 62.68 pg/mL (0-900) 04/03/17 20:45 Total Protein 7.6 g/dL (6.3-8.2) 04/03/17 20:45 Albumin 3.3 g/dL (3.9-5) L 04/03/17 20:45 Albumin/Globulin Ratio 0.8 % 04/03/17 20:45 Urine Color Yellow (Yellow) 04/03/17 Unknown Urine Turbidity Clear (Clear) 04/03/17 Unknown Urine pH 5.0 (5.0-7.0) 04/03/17 Unknown Ur Specific [place] 1.018 (1.003-1.030) 04/03/17 Unknown Urine Protein <15 mg/dl mg/dL (Negative) 04/03/17 Unknown Urine Glucose (UA) Neg mg/dL (Negative) 04/03/17 Unknown Urine Ketones Neg mg/dL (Negative) 04/03/17 Unknown Urine Blood Sm (Negative) 04/03/17 Unknown Urine Nitrite Neg (Negative) 04/03/17 Unknown Urine Bilirubin Neg (Negative) 04/03/17 Unknown Urine Urobilinogen < 2.0 mg/dL (<2.0) 04/03/17 Unknown Ur Leukocyte Esterase Tr (Negative) 04/03/17 Unknown Urine WBC (Auto) 3.0 /HPF (0.0-6.0) 04/03/17 Unknown Urine RBC (Auto) 3.0 /HPF (0.0-6.0) 04/03/17 Unknown U Epithel Cells (Auto) 2.0 /HPF (0-13.0) 04/03/17 Unknown Urine Mucus Few /HPF 04/03/17 Unknown
[2017-04-06] MEDS ORDERED: LEVAQUIN PO SCH (22:00)
[2017-04-07] MEDS: DUONEB *Not for PRN Use IH SCH ×2 (08:26→15:03)
[2017-04-07] MEDS: LOVENOX SUB-Q SCH (09:10)
--- NOTE | 2017-04-07 09:56 | Discharge Summary ---
Providers - Providers Date of Admission: 04/04/17 03:00 Date of discharge: 04/07/17 Attending physician: MAXIME TORRES Primary care physician: DOUGLAS DSOUZA Hospitalization Condition: Stable Hospital course: Patient is 62-year-old woman with history of hypertension, smoker (quit last month) ovarian and stomach cancer in remission who present from [facility] with sob and cough. Patient had the Flu and was treated with Tamiflu, 1-2 weeks prior to presentation. Chest x-ray reported as mild pulmonary vascular congestion CTA of the chest reported as minimal infiltrate in the left lower lung with slight reactive lung tissue and atelectasis right middle and lower lobe. No effusion or pneumothorax, there is no evidence of pulmonary artery emboli. -Acute hypoxic respiratory failure suspected due to Pna with underlying COPD/ Asthma component, patient was on 85% on room air at rest: Treatment will oxygen -Sepsis bilateral aspiration pneumonia: Careful with IV fluids due to venous pulmonary congestion, follow cultures -Suspected Asthmatic bronchitis vs copd -Left lower lobe pneumonia: Treatment with antibiotics -Hypokalemia: Replace and recheck in a.m. -DVT prophylaxis: Subcutaneous Lovenox 04/04/17: 85% ra 04/05/17: 87% ra, will stop fluids, give one dose of 1v lasix lasix and recheck pulse ox tomorrow, if off o2 then d/c home or arrange for home o2 on friday04/06/17: SPO2 with O2 92%, without O2 87%, with out O2 on ambulation 85%, ambulation with 2lts O2 91%, home tomorrow with O2 suspect component of Asthma. She needs testing for COPD Disposition: DC TO HOME OR SELFCARE Time spent for discharge: 35 minutes Core Measure Documentation - Palliative Care Palliative Care/ Comfort Measures: Not Applicable - Core Measures Any of the following diagnoses?: none - VTE Discharge Requirements Deep Vein Thrombosis/Pulmonary Embolism Present on Admission: No Has pt received <5 days of overlap therapy or INR<2.0: No Anticoagulant overlap therapy prescribed at discharge: No Contraindication No Overlap Therapy order at DC: Not Indicated Exam - Physical Exam Narrative exam: GEN: WDWN, NAD, AWAKE, ALERT, ORIENTATED 3 HEENT: NCAT, EOMI, PERRL, OP Clear NECK: supple, no adenopathy, no thyromegaly, no JVD CVS/HEART: RRR, NORMAL S1S2, NO JVD, pulses present bilaterally CHEST/LUNGS: Crackles bilaterally, Symmetrical chest expansion, good air entry bilaterally GI/Abdomen: soft, NTND, good bowel sounds, no guarding or rebound /Bladder: no suprapubic tenderness, no CVA or paraspinal tenderness EXT/Skin: no c/c/e, no obvious rash MSK: FROM x 4 Neuro: CN 2-12 grossly intact, no new focal deficits Psych: calm - Constitutional Vitals: Temp Pulse Resp BP Pulse Ox 98.9 F 80 18 120/65 96 04/07/17 07:37 04/07/17 08:43 04/07/17 08:43 04/07/17 07:37 04/07/17 08:29 Plan Activity: other (no strenous activity until cleared by pcp) Diet: low salt Special Instructions: home hospice Durable Medical Equipment Needed Upon Discharge: Oxygen (2 liters), Nebulizer Additional Instructions: Please see Dr. Alcaraz to be tested for COPD and asthma Follow up with: DOUGLAS DSOUZA MD [Primary Care Provider] - 3-5 Days YESSY KAMARA MD [Staff Physician] - 7 Days Prescriptions: guaiFENesin/CODEINE [Robitussin AC] 10 ml PO Q4H PRN #7 day PRN Reason: Cough Levofloxacin [Levaquin TAB] 750 mg PO Q24H #5 day methylPREDNISolone [Medrol Dose [place]] 1 dose PO DAILY #1 pack Ipratropium/Albuterol Sulfate [DUONEB *Not for PRN Use*] 1 ampul IH TIDRT #30 day
[2017-04-07 15:51] VITALS: BP 122/56
== END 2017-04-07 18:45 | disposition home or self-care (01) | DRG 871 ==
LOC: ED 18:28 → 3A 04-04 03:00
PROVIDERS: ADMIT Internal Medicine; ATTEND Internal Medicine
PROC: 4A033R1 Measurement of Arterial Saturation, Peripheral, Percutaneous Approach (ICD-10-PCS; principal; 2017-04-03)
DX: A41.9 Sepsis, unspecified organism (principal); J96.01 Acute respiratory failure with hypoxia; J69.0 Pneumonitis due to inhalation of food and vomit; J98.11 Atelectasis; J44.0 Chronic obstructive pulmonary disease with (acute) lower respiratory infection; I10 Essential (primary) hypertension; E87.6 Hypokalemia; F17.200 Nicotine dependence, unspecified, uncomplicated; Z85.43 Personal history of malignant neoplasm of ovary; Z85.028 Personal history of other malignant neoplasm of stomach; Z82.49 Family history of ischemic heart disease and other diseases of the circulatory system; Z90.3 Acquired absence of stomach [part of]
CPT/HCPCS: 36415; 71045; 71275; 80048; 80053; 81001; 82803; 83880; 84484; 85007; 85025; 85027; 85379; 85610; 85730; 87040; 93005; 93010; 94640; 94760; 96365; 96366; J1650; J1940; J1956; J7030; Q9967